=== PATIENT | male | born 1970 ===

== ENCOUNTER 2021-09-24 21:19 | Emergency (ER) | payer SELFPAY ==
[~2021-09-24] VITALS: Ht 180.3 cm; Wt 111.1 kg
[~2021-09-24 21:19] MED LIST: ACYC800 PO; ALBU90OI INH; CALCA500CH; DOXY100 PO; ERYT.5TO OS; HYDACE5 PO; MECL12.5 PO; OXYACE5T PO
[2021-09-24] MEDS ORDERED: AMOCLA875 PO (22:06)
== END 2021-09-24 22:32 | disposition home or self-care (01) ==
LOC: ER 21:19
DX: K08.89 Other specified disorders of teeth and supporting structures (principal)
CPT/HCPCS: 99282; A9270

== ENCOUNTER 2023-07-13 07:08 | Inpatient (IN) | payer OTHER ==
[~2023-07-13] VITALS: Ht 182.9 cm; Wt 108.6 kg
[~2023-07-13 07:08] MED LIST changes: +AMOCLA875 PO
[2023-07-13 08:02] LABS: BASOPHILS ABSOLUTE AUTO 0.07 K/mm3 (0.00-0.23); BASOPHILS PERCENT AUTO 1 % (0-2); EOSINOPHILS ABSOLUTE AUTO 0.14 K/mm3 (0.00-0.68); EOSINOPHILS PERCENT AUTO 2 % (0-6); Hematocrit 46.6 % (37.0-53.0); Hemoglobin 15.3 g/dL (13.5-17.5); IMMATURE GRAN ABSOLUTE AUTO 0.04 K/mm3 (0.00-0.10); IMMATURE GRAN PERCENT AUTO 0 % (0-1); LYMPHOCYTES ABSOLUTE AUTO 3.05 K/mm3 (0.84-5.20); LYMPHOCYTES PERCENT AUTO 32 % (21-46); MONOCYTES ABSOLUTE AUTO 0.74 K/mm3 (0.16-1.47); MONOCYTES PERCENT AUTO 8 % (4-13); Mean Corpuscular HGB 28.2 pg (26.0-34.0); Mean Corpuscular HGB Conc 32.8 g/dL (31.5-36.5); Mean Corpuscular Volume 86 fL (80-100); NEUTROPHILS ABSOLUTE AUTO 5.41 K/mm3 (1.96-9.15); NEUTROPHILS PERCENT AUTO 57 % (41-73); Platelet Count 243 K/mm3 (150-400); RDW Coefficient Variation 14.1 % (11.7-14.2); RDW Standard Deviation 43.4 fL (35.1-46.3); Red Blood Cell Count 5.43 M/mm3 (4.30-5.90); White Blood Cell Count 9.45 K/mm3 (4.00-11.30)
[2023-07-13 08:34] LABS: Albumin, Blood 3.4 g/dL (3.4-5.0); Albumin/Globulin Ratio 0.9 (0.8-1.8); Bun/Creatinine Ratio 22.1 (12.0-20.0); Calcium, Blood 8.9 mg/dL (8.5-10.1); Creatinine, Blood 1.04 mg/dL (0.60-1.20); Globulin, Blood 3.7 g/dL (2.2-4.0); Potassium, Blood 4.1 mmol/L (3.5-5.5); Total Protein, Blood 7.1 g/dL (6.4-8.2)
[2023-07-13 14:11] VITALS: BP 173/130
--- NOTE | 2023-07-13 14:30 | NUR ---
pt arrived to 363 via wheelchair from ED, pt able to stand and tx indep, a/ox4, pleasant and cooperative with care, follows commands well, denies pain, just sob, but states he's breathing better than when he first came in, lungs are clear in upper [place], fine crackles in bases, abby left, currently on r/a, resp even and unlabored at rest, hrr, tele in place running sr to st per monitor see strip, no edema noted, ppp+2, cap refill <3sec, b/p very elevated, did recieve a medication in ED for it, will give hydralazine, piv to lac site is clear and patent, btx4, abd round semi firm, voids without diff, reports reg bm's, skin c/w/d, richard kirkpatrick, oriented to room layout and call system, call light in reach.
[2023-07-13 15:44] VITALS: BP 160/116
--- NOTE | 2023-07-13 18:15 | NUR ---
pt was given tylenol for a bad h/a, with no affect, gave him an ice pack and removed the ntg patch per Dr. Flynn, she also increased his b/p med to bid, no further changes this shift. call light in reach.
[2023-07-13 20:20] VITALS: BP 153/104
[2023-07-14 04:56] VITALS: BP 156/114
[2023-07-14 05:28] VITALS: BP 146/87
--- NOTE | 2023-07-14 05:30 | NUR ---
SHIFT SUMMARY PT A&O X4. ABLE TO MAKE NEEDS KNOWN. DENIES CHEST PAIN/PRESSURE. PT CONTINUES TO HAVE MILD HEADACHE, SLIGHT RELIEF FROM TYLENOL, PT WAS STILL ABLE TO SLEEP DURING THIS SHIFT. HTN NOTED; HYDRALAZINE GIVEN X1 THIS NOC SHIFT. PT INDEPENDENT WITH ADL'S. AFEBRILE. ST ON MONITOR WITH HR 100-110. BED IN LOWEST POSITION AND CALL LIGHT WITHIN REACH. THIS RN WILL REPORT TO ONCOMING DAYSHIFT RN.
[2023-07-14 05:54] LABS: BASOPHILS ABSOLUTE AUTO 0.06 K/mm3 (0.00-0.23); BASOPHILS PERCENT AUTO 1 % (0-2); EOSINOPHILS ABSOLUTE AUTO 0.24 K/mm3 (0.00-0.68); EOSINOPHILS PERCENT AUTO 3 % (0-6); Hematocrit 43.3 % (37.0-53.0); Hemoglobin 14.5 g/dL (13.5-17.5); IMMATURE GRAN ABSOLUTE AUTO 0.04 K/mm3 (0.00-0.10); IMMATURE GRAN PERCENT AUTO 0 % (0-1); LYMPHOCYTES ABSOLUTE AUTO 2.38 K/mm3 (0.84-5.20); LYMPHOCYTES PERCENT AUTO 26 % (21-46); MONOCYTES ABSOLUTE AUTO 0.83 K/mm3 (0.16-1.47); MONOCYTES PERCENT AUTO 9 % (4-13); Mean Corpuscular HGB 28.2 pg (26.0-34.0); Mean Corpuscular HGB Conc 33.5 g/dL (31.5-36.5); Mean Corpuscular Volume 84 fL (80-100); Mean Platelet Volume 10.4 fL (9.1-12.4); NEUTROPHILS ABSOLUTE AUTO 5.58 K/mm3 (1.96-9.15); NEUTROPHILS PERCENT AUTO 61 % (41-73); Platelet Count 227 K/mm3 (150-400); RDW Coefficient Variation 13.8 % (11.7-14.2); RDW Standard Deviation 42.3 fL (35.1-46.3); Red Blood Cell Count 5.15 M/mm3 (4.30-5.90); White Blood Cell Count 9.13 K/mm3 (4.00-11.30)
[2023-07-14 06:15] LABS: Albumin/Globulin Ratio 0.9 (0.8-1.8); Bun/Creatinine Ratio 21.8 (12.0-20.0); Calcium, Blood 8.4 mg/dL (8.5-10.1); Creatinine, Blood 1.01 mg/dL (0.60-1.20); Globulin, Blood 3.5 g/dL (2.2-4.0); Potassium, Blood 3.6 mmol/L (3.5-5.5); Total Protein, Blood 6.5 g/dL (6.4-8.2)
[2023-07-14 07:33] VITALS: BP 146/91
[2023-07-14 09:20] LABS: U Amphetamine Screen DETECTED; U Barbituate Screen Not Detected; U Benzodiazapine Screen Not Detected; U Buprenorphine Screen Not Detected; U Cannabinoids Screen Not Detected; U Cocaine Screen Not Detected; U Methadone Screen Not Detected; U Methamphetamine Screen DETECTED; U Opiates Screen Not Detected; U Oxycodone Screen Not Detected; U Phencyclidine Screen Not Detected
[2023-07-14 16:06] VITALS: BP 151/113
--- NOTE | 2023-07-14 18:32 | NUR ---
DAYSHIFT SUMMARY Patient alert & oriented x4. Patient declined lovenox injection this morning, educated patient on DVT prophylaxsis. Patient verbalized understanding, and declined administration. Patient OOB walking around in the unit. Telemetry in place, no cardiac events this shift. Continuing to diuresis, Lasix BID, Aldactone given AM. UO >4,000mL this shift. Free Water fluid restriction 2000mL. Patient reports work of breathing has improved, he was actually able to rest this shift. Patient has f/u appointments made to refill medications and establish care with [facility] PCP after discharge. BP continues to run high, 146/91 this AM & 151/113 this afternoon. Will continue plan of care.
[2023-07-14 20:58] VITALS: BP 145/96
--- NOTE | 2023-07-15 03:15 | NUR ---
END OF SHIFT SUMMARY PT A&O x4, VSS, AFEBRILE, PT ON RA. RESP RATE EVEN AND UNLABORED. PT APPEARED TO BE SLEEPING WELL THE MAJORITY OF THE SHIFT. NO C/O CHEST PAIN/TIGHTNESS/PRESSURE. PT ON TELEMETRY, SINUS RHYTHM AT 86 BPM. CALL LIGHT WITHIN REACH, WCTM.
[2023-07-15 04:35] VITALS: BP 134/97
[2023-07-15 05:04] LABS: BASOPHILS ABSOLUTE AUTO 0.09 K/mm3 (0.00-0.23); BASOPHILS PERCENT AUTO 1 % (0-2); EOSINOPHILS ABSOLUTE AUTO 0.24 K/mm3 (0.00-0.68); EOSINOPHILS PERCENT AUTO 2 % (0-6); Hematocrit 48.1 % (37.0-53.0); Hemoglobin 16.1 g/dL (13.5-17.5); IMMATURE GRAN ABSOLUTE AUTO 0.03 K/mm3 (0.00-0.10); IMMATURE GRAN PERCENT AUTO 0 % (0-1); LYMPHOCYTES ABSOLUTE AUTO 3.05 K/mm3 (0.84-5.20); LYMPHOCYTES PERCENT AUTO 31 % (21-46); MONOCYTES ABSOLUTE AUTO 1.07 K/mm3 (0.16-1.47); MONOCYTES PERCENT AUTO 11 % (4-13); Mean Corpuscular HGB 27.8 pg (26.0-34.0); Mean Corpuscular HGB Conc 33.5 g/dL (31.5-36.5); Mean Corpuscular Volume 83 fL (80-100); Mean Platelet Volume 9.8 fL (9.1-12.4); NEUTROPHILS ABSOLUTE AUTO 5.32 K/mm3 (1.96-9.15); NEUTROPHILS PERCENT AUTO 54 % (41-73); Platelet Count 274 K/mm3 (150-400); RDW Coefficient Variation 14.1 % (11.7-14.2); RDW Standard Deviation 42.5 fL (35.1-46.3); Red Blood Cell Count 5.79 M/mm3 (4.30-5.90)
[2023-07-15 06:02] LABS: Bun/Creatinine Ratio 22.7 (12.0-20.0); Calcium, Blood 9.3 mg/dL (8.5-10.1); Creatinine, Blood 1.1 mg/dL (0.60-1.20); Potassium, Blood 4.2 mmol/L (3.5-5.5)
[2023-07-15 08:39] VITALS: BP 136/103
[2023-07-15 10:01] VITALS: BP 147/113
[2023-07-15] MEDS ORDERED: FURO40 PO (11:12)
[2023-07-15] MEDS ORDERED: JARDIANCE10 MG PO (11:12)
[2023-07-15] MEDS ORDERED: LOSA50 PO (11:13)
[2023-07-15] MEDS ORDERED: METO50ER PO (11:14)
[2023-07-15] MEDS ORDERED: POTA10T PO (11:15)
[2023-07-15] MEDS ORDERED: SPIR25 PO (11:15)
--- NOTE | 2023-07-15 13:31 | NUR ---
DISCHARGE HOME Patient AOx4, denies pain or discomfort. MD at bedside reviewed plan of care, patient medically stable for discharge. RN reviewed discharge education on medications, and the importance of taking BP & daily wts to monitor for edema. Patient verbalized understanding. Left medical unit at 1130.
== END 2023-07-15 12:15 | disposition home or self-care (01) | DRG 291 ==
LOC: ER 07:08 → MEDS 07:09 → ENPENDDIS 07-15 10:59 → MEDS 07-15 12:15
PROVIDERS: Emergency Medicine; Family Medicine; Student in an Organized Health Care Education/Training Program; ADMIT Internal Medicine
DX: I13.0 Hypertensive heart and chronic kidney disease with heart failure and stage 1 through stage 4 chronic kidney disease, or unspecified chronic kidney disease (principal); I50.21 Acute systolic (congestive) heart failure; I16.1 Hypertensive emergency; R65.10 Systemic inflammatory response syndrome (SIRS) of non-infectious origin without acute organ dysfunction; I42.0 Dilated cardiomyopathy; T65.91XA Toxic effect of unspecified substance, accidental (unintentional), initial encounter; I42.7 Cardiomyopathy due to drug and external agent; I50.810 Right heart failure, unspecified; N18.2 Chronic kidney disease, stage 2 (mild); I27.20 Pulmonary hypertension, unspecified; F15.10 Other stimulant abuse, uncomplicated; K76.0 Fatty (change of) liver, not elsewhere classified; E87.8 Other disorders of electrolyte and fluid balance, not elsewhere classified
CPT/HCPCS: 36415; 71045; 80048; 80053; 83880; 84443; 84484; 85025; 85379; 93005; 93010; 93970; 96374; 96375; 96376; 99285-25; A9270; C8929; G0378; J0360; J1940; Q9957